=== PATIENT | female | born 1955 | race African-American/Black ===

== ENCOUNTER 2020-09-13 09:15 | Outpatient (RCR) | payer MEDICARE, SELFPAY ==
[2020-08-01 14:28] VITALS: BMI 37.9
[2020-08-01 14:31] VITALS: BMI 37.9
== END 2020-10-17 09:13 | disposition home or self-care (01) ==
LOC: ANHDMC 09:15
PROVIDERS: PCP Family Medicine; Visit Provider Family Medicine
DX: E11.9 Type 2 diabetes mellitus without complications (principal); Z71.3 Dietary counseling and surveillance; Z71.89 Other specified counseling
CPT/HCPCS: 97802; G0108

== ENCOUNTER → 2021-03-16 09:18 | Outpatient (CLI) | payer MEDICARE, SELFPAY ==
--- NOTE | ~2021-03-16 | MMUS_ITS ---
EXAMINATION: MM diagnostic kim BI w lily, US breast BI limited HISTORY: Bilateral breast pain TECHNIQUE: Additional 3-D tomosynthesis images of the breasts were performed and synthetic 2-D images were generated. CAD analysis was submitted and interpreted. High resolution limited bilateral breast ultrasound was performed. COMPARISON: Comparison to multiple prior studies sequentially, with oldest reviewed study dated 12/30. BREAST PARENCHYMAL COMPOSITION: Breast composed of scattered areas of fibroglandular density. FINDINGS: MAMMOGRAPHIC FINDINGS: There are no suspicious masses, calcifications or architectural distortion in either breast to sugges t malignancy. There are benign-appearing bilateral breast calcifications. ULTRASOUND: Limited bilateral breast ultrasound: Normal heterogeneous echotexture without focal solid or cystic m ass. IMPRESSION: 1. No evidence for malignancy in either breast. 2. Routine yearly screening mammogram and regular clinical breast examination are recommended. Recomm end clinical management for breast pain. BI-RADS Category 1: Negative Reviewed, dictated and finalized at location A. N TIER IMPRESSION: 1. No evidence for malignancy in either breast. 2. Routine yearly screening mammogram and regular clinical breast examination a re recommended. Recommend clinical management for breast pain. BI-RADS Category 1: Negative
== END ==
PROVIDERS: PCP Family Medicine; Visit Provider Nurse Practitioner Gerontology
DX: N64.4 Mastodynia (principal)
CPT/HCPCS: 76642; 77062; 77066; G0279

== ENCOUNTER 2021-05-04 20:33 | Emergency (ER) | payer MEDICARE, SELFPAY ==
--- NOTE | ~2021-05-04 | CT_ITS ---
EXAMINATION: CT abdomen pelvis wo con EXAM DATE: 05/04/2021 22:05 INDICATION: Left flank pain . TECHNIQUE: Spiral CT of the abdomen and pelvis was performed without contrast. Axial, coronal and sag ittal images were reviewed. The dose-length product (DLP) for this examination was 1058.02 mGy-cm. The exposure was tailored according to patient size (auto mA exposure control), and iterative reconst ruction (ASIR) was used as additional dose reduction technique. There is no prior study for comparis on. FINDINGS: Right kidney is located in the pelvis. There is no nephrolithiasis or hydronephrosis. The uterus is anteverted and morphologically normal. The bladder is unremarkable. The liver, spleen, adrenal glands and pancreas are unremarkable. There is large peripherally calcified gallstone. Gallb ladder otherwise is normal. There is no retroperitoneal or pelvic lymphadenopathy. There is mild s cattered arteriosclerotic disease. The appendix is normal. The stomach and small bowel are unremarkable. There is moderate amount of c olonic stool. No free intraperitoneal gas. The heart is normal in size. There are no pericardial or pleural effusions. The lung bases are unremarkable. There are no osteoblastic or osteolytic les ions identified. IMPRESSION: 1. No nephrolithiasis, hydronephrosis or acute intra-abdominal findings. 2. Right kidney pelvic position. 3. Cholelithiasis. Reviewed, dictated and finalized at location G. [employer] HELPER
[2021-05-04 20:39] VITALS: BP 180/74; PULSE 81; RESP 20; TEMP 36.9; O2SAT 100
[2021-05-04 21:14] LABS: Add Urine Microscopic? YES; Appearance Urine Clear (Clear); Bilirubin Urine Negative (Negative); Blood Urine Negative (Negative); Color Urine Yellow (Yellow); Glucose Urine UA Negative (Negative); Ketones Urine Negative (Negative); Leukocyte Esterase Ur Negative LEU/UL (Negative); Mucus Urine Rare /lpf; Nitrate Urine Negative (Negative); Protein Urine Negative (Negative); RBC Urine 0-2 /hpf (0-2); Squamous Epithelial Cell Urine Many /hpf (Few); Urobilinogen Urine Negative mg/dL (<2.0); WBC Urine 0-3 /hpf
--- NOTE | 2021-05-04 21:54 | ED.BACK ---
HPI - Back Pain/Injury General Chief Complaint: Back Pain/Injury Stated Complaint: back pain Time Seen by Provider: 05/04/21 21:48 Source: patient Mode of arrival: ambulatory Limitations: no limitations History of Present Illness HPI Narrative: Patient is a 65-year-old female complaining of left flank pain, 6 out of 10, dull, nonradiating, worse with movement been going on for years but worse the past 5 days. Patient states that she has seen her PCP multiple times for the pain and states that all they do is give her pain medications. She did state that she has seen a chiropractor for her low back pain, which she states did not help with her pain. Patient denies any chest, shortness of breath, abdominal pain, nausea, vomiting, diarrhea, urinary symptoms, fever or chills. Patient denies any injury to the area. Related Data Home Medications Medication Instructions Recorded Confirmed dorzolamide 2 %-timolol 0.5 % (PF) 1 drp OPHTHALMIC (EYE) BID 02/04/20 04/27/21 eye drops latanoprost 0.005 % eye drops 1 drp OPHTHALMIC (EYE) DAILY 02/04/20 04/27/21 Allergies Allergy/AdvReac Type Severity Reaction Status Date / Time lisinopril Allergy Swelling Verified 05/04/21 20:42 of Lip/Tongue/Throat Review of Systems Review of Systems: All systems reviewed & are unremarkable except as noted in HPI and below Constitutional: Constitutional: Denies body ache(s), Denies chills, Denies excessive sweating, Denies fatigue, Denies fever(s), Denies headache(s), Denies lethargy, Denies malaise, Denies weakness and Denies weight loss Eyes: Eyes: Denies blurry vision, Denies change in vision and Denies loss of vision ENT: Denies dizziness, Denies ear discharge, Denies headache(s), Denies lip swelling, Denies epistaxis, Denies nasal congestion, Denies neck pain, Denies throat swelling and Denies tongue swelling Cardiovascular: Cardiovascular: Denies chest pain, Denies chest pain at rest, Denies chest pain with activity, Denies diaphoresis, Denies rapid heart rate, Denies edema, Denies irregular heart rhythm, Denies lightheadedness, Denies palpitations, Denies dyspnea and Denies dyspnea on exertion Respiratory: Respiratory: Denies chest congestion, Denies cough, Denies hemoptysis, Denies dyspnea and Denies dyspnea on exertion Gastrointestinal: Gastrointestinal: Denies abdominal pain, Denies melena, Denies hematochezia, Denies diarrhea, Denies nausea, Denies vomiting and Denies hematemesis Musculoskeletal: Musculoskeletal: Denies abnormal gait, Denies deformity, Denies joint swelling, Denies limited range of motion, Denies neck pain and Denies numbness Neurologic: Denies Abnormal speech present, Denies abnormal gait, Denies confusion, Denies dizziness, Denies headache(s), Denies focal weakness, Denies loss of vision, Denies numbness, Denies Other visual disturbances, Denies Sensory deficit (Neuro) and Denies weakness Psychiatric: Psychiatric: Denies confusion, Denies depression, Denies auditory hallucinations, Denies homicidal ideation and Denies suicidal ideation Endocrine: Endocrine: Denies cold intolerance, Denies excessive sweating, Denies fatigue, Denies heat intolerance and Denies palpitations Hematologic/Lymphatic: Hematologic/Lymphatic: Denies easy bleeding and Denies easy bruising Allergic/Immunologic: Allergic/Immunologic: Denies lip swelling, Denies throat swelling and Denies tongue swelling PMFSH Past Medical History Medical History (Updated 05/04/21 @ 22:31 by Flaco Pierson MD) Acromioclavicular joint arthritis Diabetic retinopathy Poor compliance Type 2 diabetes mellitus with diabetic chronic kidney disease Family History Family History Other Depression Diabetes mellitus Hypertension Social History Social History (Updated 04/27/21 @ 13:56 by Michelle Bee) Social History: Smoking status: Never smoker Second hand tobacco smoke exposure:
[2021-05-04] MEDS: KETOROLAC 30 MG/ML VIAL (*BKC) IM (22:45)
[2021-05-04] MEDS: CYCLOBENZAPRINE HCL 10 MG TABLET PO (22:45)
[2021-05-04 22:48] LABS: Basophils Absolute Auto 0.1 K/mm3 (0.0-0.1); Basophils Percent Auto 0.6 % (0.2-1.2); Eosinophils Absolute Auto 0.1 K/mm3 (0-0.3); Eosinophils Percent Auto 1.6 % (0-4.4); Hematocrit 38.5 % (37.0-47.0); Hemoglobin 12.1 g/dL (12.0-15.0); Immature Granulocyte Absolute 0.01 K/mm3 (0.00-0.031); Immature Granulocyte Percent A 0.1 % (0-0.5); Lymphocytes Absolute Auto 2.41 K/mm3 (0.9-3.2); Lymphocytes Percent Auto 30.4 % (18.3-44.2); Mean Corpuscular HGB Conc 31.4 g/dl (32-36); Mean Corpuscular Hemoglobin 30.5 pg (26-34); Mean Platelet Volume 10.5 fl (7.4-10.4); Monocytes Absolute Auto 0.6 K/mm3 (0.1-0.6); Monocytes Percent Auto 7.9 % (2.6-8.5); Neutrophils Absolute Auto 4.7 K/mm3 (1.3-6.7); Neutrophils Percent Auto 59.4 % (45.5-73.1); Platelet Count Result 240 k/mm3 (150-375); Red Blood Count 3.97 M/mm3 (4.2-5.4); Red Cell Distribution Width 13.5 % (11.5-14.5); White Blood Count 7.9 K/mm3 (4.5-10.0)
[2021-05-04 23:05] LABS: Anion Gap 3 mmol/L (8-16); Blood Urea Nitrogen 22 mg/dL (7-17); Calcium 9.2 mg/dL (8.4-10.2); Carbon Dioxide 27 mmol/L (22-30); Chloride 109 mmol/L (98-107); Estimated CRCL calculation 53 ml/min; Estimated Glomerular Filt Rate 60; Glucose 141 mg/dL (65-110); Sodium 139 mmol/L (137-145)
[2021-05-04 23:53] VITALS: BP 148/78; PULSE 78; RESP 16; O2SAT 99
== END 2021-05-04 23:54 | disposition home or self-care (01) ==
LOC: ANHED 22:37
PROVIDERS: Emergency Provider Emergency Medicine; PCP Family Medicine
DX: M54.50 Low back pain, unspecified (principal); E11.22 Type 2 diabetes mellitus with diabetic chronic kidney disease; N18.9 Chronic kidney disease, unspecified; E11.319 Type 2 diabetes mellitus with unspecified diabetic retinopathy without macular edema; M19.019 Primary osteoarthritis, unspecified shoulder; Z79.4 Long term (current) use of insulin
CPT/HCPCS: 36415; 74176; 80048; 81001; 85025; 96372; 99284; A9270; J1885

== ENCOUNTER → 2023-05-29 10:37 | Outpatient (CLI) | payer MEDICARE, SELFPAY ==
--- NOTE | ~2023-05-29 | MM_ITS ---
EXAMINATION: MM screening kim BI w lily HISTORY: Screening TECHNIQUE: Craniocaudal and mediolateral oblique 3-D tomosynthesis images were obtained and synthetic 2-D images were generated. CAD analysis was submitted and interpreted. COMPARISON: Comparison to multiple prior studies sequentially, with oldest reviewed study dated 12/15. BREAST PARENCHYMAL COMPOSITION: Dense: The breasts are heterogeneously dense, which may obscure small masses FINDINGS: There is no evidence of suspicious mass, calcification, or architectural distortion to sugg est malignancy in either breast. There has been no suspicious interval change. IMPRESSION: 1. No mammographic evidence of malignancy. 2. Recommend routine screening mammography in one year. BI-RADS Category 1: Negative Reviewed, dictated and finalized at location A. [employer] DE[employer]MENT CHAIR
== END ==
PROVIDERS: PCP Internal Medicine Gastroenterology; Visit Provider Internal Medicine Gastroenterology
DX: Z12.31 Encounter for screening mammogram for malignant neoplasm of breast (principal)
CPT/HCPCS: 77063; 77067

== ENCOUNTER 2024-06-24 09:20 | Outpatient (CLI) | payer MEDICARE, SELFPAY ==
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
== END 2024-06-24 09:21 | disposition home or self-care (01) ==
LOC: MICIMG 09:21
PROVIDERS: PCP Internal Medicine Gastroenterology; Visit Provider Internal Medicine Gastroenterology
DX: N63.15 Unspecified lump in the right breast, overlapping quadrants (principal)
CPT/HCPCS: 76642; 77062; 77066; G0279